=== PATIENT | female | born 1990 | race Caucasian/White ===

== ENCOUNTER → 2016-11-28 | Outpatient (REF) | payer OTHER | LOC: M SFHCWAGY 15:16 | PROVIDERS: ATTEND Nurse Practitioner Women's Health | DX: Z12.4 Encounter for screening for malignant neoplasm of cervix (principal) ==

== ENCOUNTER → 2019-01-02 | Outpatient (REF) | payer OTHER | LOC: M SFHCLERA 11:30 | PROVIDERS: ATTEND Nurse Practitioner Family | DX: J02.9 Acute pharyngitis, unspecified (principal) ==

== ENCOUNTER → 2020-08-10 | Outpatient (REF) | payer OTHER ==
[~2020-08-10] MED LIST: CETI10CH PO; LORA10CA PO
== END ==
LOC: M SFHCWAGY 13:19
PROVIDERS: ATTEND Nurse Practitioner Women's Health
DX: Z12.4 Encounter for screening for malignant neoplasm of cervix (principal); Z01.419 Encounter for gynecological examination (general) (routine) without abnormal findings

== ENCOUNTER → 2020-08-13 | Outpatient (CLI) | payer OTHER ==
--- NOTE | 2020-08-20 09:58 | REP ---
UNILATERAL DIAGNOSTIC MAMMOGRAM LEFT BREAST WITH LEFT BREAST ULTRASOUND HISTORY: Palpable lump for one month medial left breast. Family history of breast cancer at age 65 in paternal aunt. [facility] lifetime risk of breast cancer 20.3%. COMPARISON STUDIES: None. TECHNIQUE: MLO and CC views of the left breast are performed with 3D tomosynthesis. Additional spot compression views performed at the site of the palpable lump in the medial left breast. FINDINGS: There is mild scattered fibroglandular tissue throughout the left breast. [place] breast density is B. At the site of the palpable lump, there is an oval heterogeneous mass containing fat, as well as ill-defined nodular components. It appears to have a thin capsule. It measures about 4 x 3 cm. I suspect this is most consistent with a hamartoma. There is no other evidence of mass or clustered microcalcifications in the left breast. Real-time sonographic evaluation of the left breast performed at the site of the palpable lump and heterogeneous mass seen by mammography. At that location, there is a heterogeneous mixed echogenicity mass with both hyperechoic and hypoechoic components measuring 4.2 x 1.6 x 5.2 cm. This is consistent with a hamartoma. IMPRESSION: ACR 2 benign. At the site of the palpable lump medial left breast, there is an oval mass containing fat with an appearance consistent with a benign hamartoma. Ultrasound shows a heterogeneous solid mass at that location with both hypoechoic and hyperechoic components. The hyperechoic component is compatible with the presence of fat within the lesion. The finding is benign. Given the patients increased risk of breast cancer 20.3%, I would strongly consider supplemental screening MRI of the breast. This mammogram was interpreted with the aid of an FDA approved computer-aided detection system. The patient states her last clinical breast exam was 08/2020. Patient letter: 2. LEENA
== END ==
LOC: M WHC 10:01
PROVIDERS: ATTEND Nurse Practitioner Women's Health
DX: D24.2 Benign neoplasm of left breast (principal)
CPT/HCPCS: 76642; 77065; G0279